=== PATIENT | female | born 1995 | race Hispanic/Latino ===

== ENCOUNTER → 2018-03-21 | Outpatient (CLI) | payer OTHER ==
[~2018-03-21] MED LIST: DOCU-116 PO; IBUP-2071 PO; PNV1TABL77 PO
== END | disposition home or self-care (01) ==
LOC: RAH 07:21
PROVIDERS: ATTEND Family Medicine
DX: K80.20 Calculus of gallbladder without cholecystitis without obstruction (principal)
CPT/HCPCS: 76705

== ENCOUNTER 2018-09-17 23:16 | Emergency (ER) | payer OTHER ==
[2018-09-18] MEDS ORDERED: ONDANSETRON HCL 4 MG/2 ML VIAL ONE (00:03)
[2018-09-18] MEDS ORDERED: DICYCLOMINE HCL 10 MG/ML 2ML AMP IM ONE (00:03)
== END 2018-09-18 00:24 | disposition home or self-care (01) ==
LOC: EDH 23:16
DX: K80.50 Calculus of bile duct without cholangitis or cholecystitis without obstruction (principal)
CPT/HCPCS: 99283; J0500; J2405